=== PATIENT | female | born 1955 | race African-American/Black ===

== ENCOUNTER 2021-09-25 01:55 | Inpatient (IN) | payer OTHER, MEDICAID ==
[2021-09-25] VITALS (7 sets, daily range): BP systolic 97–173; BP diastolic 62–129
[~2021-09-25] VITALS: Ht 167.6 cm; Wt 111.1 kg
[2021-09-25] MEDS ORDERED: FAMOTIDINE 20MG/2ML VIAL IV ONE (02:30)
[2021-09-25] MEDS ORDERED: METHYLPREDNISOLONE SOD SUCC 125 MG/2 ML VIAL IV ONE (02:30)
[2021-09-25] MEDS ORDERED: DIPHENHYDRAMINE 50MG/ML VIAL IV ONE (02:30)
[2021-09-25] MEDS ORDERED: EPINEPHRINE 1:1000 1 MG/ML AMP IM ONE (02:30)
[2021-09-25] MEDS ORDERED: SODIUM CHLORIDE 0.9% 1,000 ML IV ONE (02:45)
[2021-09-25 02:50] LABS: BASOPHILS % 0.3 % (0.0-2.0); EOSINOPHILS % 1.2 % (0.0-5.0); HEMATOCRIT. 40.8 % (36.0-48.0); HEMOGLOBIN. 13.4 g/dL (12.0-16.0); LYMPHOCYTES % 48.8 % (20.0-50.0); MEAN CORPUSCULAR HEMOGLOBIN 28.2 pg (28.0-32.0); MEAN CORPUSCULAR VOLUME 86.1 fL (81.0-99.0); MEAN PLATELET VOLUME 8.9 fl (7.4-10.4); MONOCYTES % 5.8 % (2.0-8.0); NEUTROPHILS % 43.9 % (40.0-76.0); PLATELET 297 x1000/uL (130-400); RED BLOOD CELL COUNT 4.74 mill/uL (4.2-5.4); RED CELL DISTRIBUTION WIDTH 15.7 % (11.6-14.6)
[2021-09-25 02:55] LABS: CHLORIDE 108 mEq/L (98-107)
[2021-09-25] MEDS ORDERED: AMLODIPINE 5MG TABLET PO NR (04:30)
[2021-09-25] MEDS ORDERED: IPRATROPIUM/ALBUTEROL 0.5-3(2.5)MG/3ML NEB HHN PRN (04:45)
[2021-09-25] MEDS ORDERED: MAGNESIUM/ALUMINUM HYDROXIDE/SIMETHICONE 30ML UDC PO PRN (04:45)
[2021-09-25] MEDS ORDERED: DOCUSATE SODIUM 100MG CAPSULE PO PRN (04:45)
[2021-09-25] MEDS ORDERED: ONDANSETRON HCL 4MG/2ML INJ IV PRN (04:45)
[2021-09-25] MEDS ORDERED: LORAZEPAM 2MG/ML CPJ IV PRN (04:45)
[2021-09-25] MEDS ORDERED: ACETAMINOPHEN 650MG SUPP PR PRN ×2 (04:45)
[2021-09-25] MEDS ORDERED: DIPHENHYDRAMINE 50MG/ML VIAL IV PRN (04:45)
[2021-09-25] MEDS ORDERED: ACETAMINOPHEN 325MG TABLET PO PRN (04:45)
[2021-09-25] MEDS ORDERED: GUAIFENESIN 200MG/10ML SUGAR FREE UDC PO PRN (04:45)
[2021-09-25] MEDS ORDERED: HYDROCODONE/ACETAMINOPHEN 5/325MG TABLET PO PRN (04:45)
[2021-09-25] MEDS ORDERED: TRAMADOL 50MG TABLET PO PRN (05:00)
[2021-09-25 05:20] LABS: CHLORIDE 109 mEq/L (98-107)
[2021-09-25 05:24] LABS: BASOPHILS % 0.2 % (0.0-2.0); EOSINOPHILS % 0.3 % (0.0-5.0); HEMATOCRIT. 38.7 % (36.0-48.0); HEMOGLOBIN. 12.9 g/dL (12.0-16.0); LYMPHOCYTES % 12.2 % (20.0-50.0); MEAN CORPUSCULAR HEMOGLOBIN 28.8 pg (28.0-32.0); MEAN CORPUSCULAR VOLUME 86.3 fL (81.0-99.0); MEAN PLATELET VOLUME 8.7 fl (7.4-10.4); MONOCYTES % 1.9 % (2.0-8.0); NEUTROPHILS % 85.4 % (40.0-76.0); PLATELET 247 x1000/uL (130-400); RED BLOOD CELL COUNT 4.48 mill/uL (4.2-5.4); RED CELL DISTRIBUTION WIDTH 15.6 % (11.6-14.6)
[2021-09-25 05:27] LABS: LDL CHOLESTEROL 129 mg/dL (5-100)
[2021-09-25 05:28] LABS: CREATINE KINASE 83 IU/L (26-192); HDL CHOLESTEROL 45 mg/dL (40-59)
[2021-09-25] MEDS: METHYLPREDNISOLONE SOD SUCC 125 MG/2 ML VIAL IV SCH ×4 (10:13→22:18)
[2021-09-25] MEDS ORDERED: NALOXONE HCL 0.4MG/ML VIAL IV PRN (13:00)
[2021-09-25] MEDS: CLONIDINE 0.1MG TABLET PO PRN ×2 (13:01→22:20)
[2021-09-25] MEDS: ACETAMINOPHEN 325MG TABLET PO PRN ×2 (13:03→20:44)
[2021-09-25] MEDS ORDERED: LIP40 MT (13:40)
[2021-09-25] MEDS ORDERED: AMLO10TA4 PO (13:40)
[2021-09-25] MEDS ORDERED: METH-774 PO (13:40)
[2021-09-25] MEDS ORDERED: MELO-104 MT (13:40)
[2021-09-25] MEDS ORDERED: BENA40TA9 PO (13:40)
[2021-09-25] MEDS ORDERED: MULT-1146 MT (13:40)
[2021-09-25] MEDS ORDERED: TRAM50TA3 PO (13:40)
[2021-09-25] MEDS ORDERED: ALLO300T2 PO (13:40)
[2021-09-25] MEDS ORDERED: AMLODIPINE 10MG TABLET PO SCH (23:00)
[2021-09-26] VITALS (8 sets, daily range): BP systolic 99–167; BP diastolic 43–110
[2021-09-26 07:22] LABS: BASOPHILS % 0.2 % (0.0-2.0); HEMATOCRIT. 40.1 % (36.0-48.0); HEMOGLOBIN. 13.1 g/dL (12.0-16.0); LYMPHOCYTES % 11.2 % (20.0-50.0); MEAN CORPUSCULAR HEMOGLOBIN 28.3 pg (28.0-32.0); MEAN CORPUSCULAR VOLUME 86.4 fL (81.0-99.0); MEAN PLATELET VOLUME 9.5 fl (7.4-10.4); MONOCYTES % 1.7 % (2.0-8.0); NEUTROPHILS % 86.9 % (40.0-76.0); PLATELET 256 x1000/uL (130-400); RED BLOOD CELL COUNT 4.64 mill/uL (4.2-5.4); RED CELL DISTRIBUTION WIDTH 15.9 % (11.6-14.6)
[2021-09-26 07:46] LABS: CHLORIDE 110 mEq/L (98-107)
[2021-09-26] MEDS ORDERED: AMLODIPINE 5MG TABLET PO SCH (09:00)
[2021-09-26] MEDS ORDERED: ENOXAPARIN 30MG/0.3ML SYR SUBCUT SCH (09:30)
[2021-09-26] MEDS ORDERED: AMLO-498 MT (18:59)
[2021-09-26] MEDS ORDERED: DIPH25CA83 MT (18:59)
[2021-09-29 04:07] LABS: ANA IFA Positive (.)
== END 2021-09-26 19:53 | disposition home or self-care (01) | DRG 916 ==
LOC: ER 01:55 → MICUSO 03:08 → 5EST 12:10
PROVIDERS: ADMIT Family Medicine Adult Medicine; ATTEND Family Medicine Adult Medicine
DX: T78.3XXA Angioneurotic edema, initial encounter (principal); T46.4X5A Adverse effect of angiotensin-converting-enzyme inhibitors, initial encounter; I10 Essential (primary) hypertension; Z82.49 Family history of ischemic heart disease and other diseases of the circulatory system; Z79.899 Other long term (current) drug therapy; Z88.5 Allergy status to narcotic agent; Z88.8 Allergy status to other drugs, medicaments and biological substances; Y92.89 Other specified places as the place of occurrence of the external cause
CPT/HCPCS: 36415; 71045; 80048; 80053; 80061; 82550; 84443; 84484; 85025; 85651; 86160; 86256; 86430; 99291; J1200; J1650; J2930; J3490; J7030